=== PATIENT | female | born 1955 | race Caucasian/White ===

== ENCOUNTER 2019-01-31 09:38 | Outpatient (CLI) | payer OTHER ==
[~2019-01-31 09:38] MED LIST: ALLEGRA ALLERG180 MG PO; BABY ASPIRIN81 MG; CRESTOR5 MG; EMETROL ORAL S118 ML; GLUCOTROL10 MG PO; HUMALOG MIX 75/23 ML SQ; INVOKANA100 MG; LANTUS100 U/ML; METFORMIN HCL500 MG; NABUMETONE750 MG PO; ONGLYZA5 MG; ORPH100T PO; PEPCID40 MG PO; PROTONIX20 MG PO; ZOCOR20 MG PO
== END 2019-01-31 15:00 | disposition home or self-care (01) ==
LOC: LAB 09:38
DX: E11.42 Type 2 diabetes mellitus with diabetic polyneuropathy (principal); E21.0 Primary hyperparathyroidism; E78.00 Pure hypercholesterolemia, unspecified; E03.8 Other specified hypothyroidism; E04.2 Nontoxic multinodular goiter; Z13.820 Encounter for screening for osteoporosis

== ENCOUNTER → 2019-02-15 | Outpatient (CLI) | payer OTHER | END | disposition home or self-care (01) | LOC: SONOGRAMA 09:44 | DX: E04.1 Nontoxic single thyroid nodule (principal) ==

== ENCOUNTER 2019-04-25 11:36 | Emergency (ER) | payer OTHER ==
[~2019-04-25] VITALS: Ht 157.5 cm; Wt 72.6 kg
[2019-04-25] MEDS ORDERED: METFORMIN HCL1000 M1 (12:17)
[2019-04-25] MEDS ORDERED: BACTRIM DS TAB1 EACH PO (14:07)
[2019-04-25] MEDS ORDERED: INTESTINEX680 M1 PO (14:07)
== END 2019-04-25 15:45 | disposition home or self-care (01) ==
LOC: ER 11:36
DX: L02.213 Cutaneous abscess of chest wall (principal)

== ENCOUNTER 2019-05-04 09:59 | Outpatient (CLI) | payer OTHER ==
[~2019-05-04 09:59] MED LIST changes: +BACTRIM DS TAB1 EACH PO; +INTESTINEX680 M1 PO; +METFORMIN HCL1000 M1
== END 2019-05-04 10:07 | disposition home or self-care (01) ==
LOC: RAD 09:59
DX: J45.41 Moderate persistent asthma with (acute) exacerbation (principal); R06.02 Shortness of breath

== ENCOUNTER 2021-07-24 12:38 | Emergency (ER) | payer OTHER ==
[~2021-07-24] VITALS: Ht 162.6 cm; Wt 68.0 kg
[2021-07-24] MEDS ORDERED: BETAMETHASONE D15 G3 TOP (16:19)
[2021-07-24] MEDS ORDERED: VISTARIL25 MG PO (16:19)
== END 2021-07-24 16:52 | disposition home or self-care (01) ==
LOC: ER 12:38
DX: L50.8 Other urticaria (principal)

== ENCOUNTER 2022-04-19 14:47 | Emergency (ER) | payer OTHER ==
[~2022-04-19] VITALS: Ht 157.5 cm; Wt 72.6 kg
[~2022-04-19 14:47] MED LIST changes: +BETAMETHASONE D15 G3 TOP; +VISTARIL25 MG PO
== END 2022-04-19 19:28 | disposition home or self-care (01) ==
LOC: ER 14:47
DX: M54.9 Dorsalgia, unspecified (principal); E11.9 Type 2 diabetes mellitus without complications; Z79.84 Long term (current) use of oral hypoglycemic drugs; Z91.041 Radiographic dye allergy status; I10 Essential (primary) hypertension; Z86.73 Personal history of transient ischemic attack (TIA), and cerebral infarction without residual deficits; H53.139 Sudden visual loss, unspecified eye

== ENCOUNTER 2022-06-25 11:51 | Emergency (ER) | payer OTHER ==
[~2022-06-25] VITALS: Ht 157.5 cm; Wt 72.6 kg
[~2022-06-25 11:51] MED LIST changes: +DIABETIC SILTU118 M1 PO; +HUMULIN 70100 UNIT/1 SQ; +MOLNUPIRAVIR (200 MG PO; +ROSUVASTATIN CA40 MG PO; +ST. JOSEPH ASPI81 M2 PO; +VALSARTAN80 MG PO
== END 2022-06-25 15:17 | disposition home or self-care (01) ==
LOC: ER 11:51
DX: S19.9XXA Unspecified injury of neck, initial encounter (principal); V49.9XXA Car occupant (driver) (passenger) injured in unspecified traffic accident, initial encounter; Y93.9 Activity, unspecified; Y92.9 Unspecified place or not applicable; Y99.9 Unspecified external cause status; E11.9 Type 2 diabetes mellitus without complications; Z79.4 Long term (current) use of insulin; Z79.84 Long term (current) use of oral hypoglycemic drugs; I10 Essential (primary) hypertension; Z88.8 Allergy status to other drugs, medicaments and biological substances

== ENCOUNTER 2022-10-14 13:16 | Outpatient (CLI) | payer OTHER | END 2022-10-14 13:23 | disposition home or self-care (01) | LOC: RAD 13:16 | PROVIDERS: ATTEND Internal Medicine Nephrology | DX: E83.52 Hypercalcemia (principal); Z12.2 Encounter for screening for malignant neoplasm of respiratory organs ==

== ENCOUNTER 2023-04-15 15:24 | Outpatient (CLI) | payer OTHER | END 2023-04-15 15:36 | disposition home or self-care (01) | LOC: RAD 15:24 | PROVIDERS: ATTEND Internal Medicine | DX: M25.569 Pain in unspecified knee (principal); Z96.642 Presence of left artificial hip joint ==

== ENCOUNTER → 2023-04-28 08:40 | Outpatient (CLI) | payer OTHER | END | disposition home or self-care (01) | LOC: NUCLEAR 07:30 | PROVIDERS: ATTEND Internal Medicine | DX: R52 Pain, unspecified (principal); M95.9 Acquired deformity of musculoskeletal system, unspecified | CPT/HCPCS: 78306; A9503 ==

== ENCOUNTER 2023-05-13 10:23 | Outpatient (CLI) | payer OTHER | END 2023-05-13 10:29 | disposition home or self-care (01) | LOC: MRI 10:23 | PROVIDERS: ATTEND Internal Medicine | DX: S32.049A Unspecified fracture of fourth lumbar vertebra, initial encounter for closed fracture (principal) | CPT/HCPCS: 72148 ==

== ENCOUNTER 2023-05-19 07:23 | Outpatient (CLI) | payer OTHER | END 2023-05-19 07:25 | disposition home or self-care (01) | LOC: NUCLEAR 07:23 | PROVIDERS: ATTEND Internal Medicine | DX: E21.0 Primary hyperparathyroidism (principal) | CPT/HCPCS: 78072; A9500 ==

== ENCOUNTER 2023-09-14 07:16 | Outpatient (CLI) | payer OTHER | END 2023-09-14 07:18 | disposition home or self-care (01) | LOC: NUCLEAR 07:16 | PROVIDERS: ATTEND Internal Medicine | DX: E25.9 Adrenogenital disorder, unspecified (principal) | CPT/HCPCS: 78815; A9552 ==

== ENCOUNTER 2023-10-25 12:28 | Outpatient (CLI) | payer OTHER | END 2023-10-25 12:39 | disposition home or self-care (01) | LOC: SONOGRAMA 12:28 | PROVIDERS: ATTEND Internal Medicine | DX: E04.2 Nontoxic multinodular goiter (principal) ==

== ENCOUNTER 2023-11-03 08:26 | Outpatient (CLI) | payer OTHER | END 2023-11-03 08:27 | disposition home or self-care (01) | LOC: NUCLEAR 08:26 | PROVIDERS: ATTEND Orthopaedic Surgery | DX: M81.0 Age-related osteoporosis without current pathological fracture (principal); E21.0 Primary hyperparathyroidism | CPT/HCPCS: 78070; 78803; A9500 ==

== ENCOUNTER 2024-04-19 10:13 | Outpatient (CLI) | payer OTHER | END 2024-04-19 10:14 | disposition home or self-care (01) | LOC: NUCLEAR 10:13 | PROVIDERS: ATTEND Internal Medicine | DX: M81.0 Age-related osteoporosis without current pathological fracture (principal) ==

== ENCOUNTER → 2024-06-21 07:33 | Outpatient (CLI) | payer OTHER | END | disposition home or self-care (01) | LOC: NUCLEAR 05-09 07:00 | PROVIDERS: ATTEND Internal Medicine | DX: E03.9 Hypothyroidism, unspecified (principal) | CPT/HCPCS: 78071; A9500 ==